=== PATIENT | male | born 1965 | race Caucasian/White ===

== ENCOUNTER → 2017-12-14 | Outpatient (CLI) | payer OTHER ==
[~2017-12-14] MED LIST: FUROSEMIDE 20 MG/2 ML ONE
== END ==
LOC: RAD 12:04
PROVIDERS: ATTEND Urology
DX: Q63.1 Lobulated, fused and horseshoe kidney (principal)
CPT/HCPCS: 78708; A9562; J1940

== ENCOUNTER 2017-12-23 05:42 | Observation (INO) | payer OTHER ==
[2017-12-21 08:56] LABS: ALANINE AMINOTRANSFERASE 42 U/L (12-78); ALBUMIN 4.1 g/dL (3.4-5.0); ANION GAP 10 mmol/L (5-15); CALCIUM 9.6 mg/dL (8.5-10.1); CHLORIDE 101 mmol/L (98-107); CREATININE 1.47 mg/dL (0.7-1.3)
[2017-12-21 08:58] LABS: ALKALINE PHOSPHATASE 104 U/L (45-117); BILIRUBIN,TOTAL 0.4 mg/dL (0.2-1.0); TOTAL PROTEIN 8.1 g/dL (6.4-8.2)
[~2017-12-23] VITALS: Ht 185.4 cm; Wt 117.1 kg
[~2017-12-23 05:42] MED LIST changes: +ASPI-621 PO; +ATOR10TA9 PO; +FENO160T PO; -FUROSEMIDE 20 MG/2 ML ONE; +LOSA1TAB22 PO; +METF500T4 PO; +MULT-516 PO
[2017-12-23] MEDS ORDERED: LACTATED RINGERS 1,000 ML IV SCH (06:23)
[2017-12-23 06:28] VITALS: BP 128/90
[2017-12-23] MEDS ORDERED: INSULIN REGULAR 100 UNITS/ML, 3ML VIAL SQ-INSULIN STA (07:00)
[2017-12-23] MEDS ORDERED: INSULIN SINGLE DOSE, ER SQ-INSULIN ONE ×2 (07:02→11:08)
[2017-12-23] MEDS ORDERED: ROCURONIUM 10 MG/ML,10ML ONE (07:13)
[2017-12-23] MEDS ORDERED: PROPOFOL 10 MG/ML, 20ML ONE (07:13)
[2017-12-23] MEDS ORDERED: LIDOCAINE-MPF 2% ,5ML ONE (07:13)
[2017-12-23] MEDS ORDERED: BUPIVACAINE/PF 0.25% ONE (07:17)
[2017-12-23] MEDS ORDERED: FLUORESCEIN SODIUM 500 MG/5 ML ONE (07:17)
[2017-12-23] MEDS ORDERED: EPINEPHRINE 1 MG/ML, 1ML ONE (07:17)
[2017-12-23] MEDS ORDERED: THROMBIN 5,000 UNIT VIAL TP ONE (07:17)
[2017-12-23 07:18] LABS: MICROSCOPIC NOT IND
[2017-12-23 07:30] LABS: CULTURE INDICATED? NO
[2017-12-23] MEDS ORDERED: CEFAZOLIN 1,000 MG ONE ×2 (07:40)
[2017-12-23] MEDS ORDERED: FENTANYL PF 100 MCG/2ML ONE ×2 (08:16→10:18)
[2017-12-23] MEDS ORDERED: HYDROmorphone 2 MG/ML, 1ML ONE ×2 (08:21→12:05)
[2017-12-23] MEDS ORDERED: DEXAMETHASONE 4 MG/ML, 1ML ONE ×2 (08:30)
[2017-12-23] MEDS ORDERED: BUPIVACAINE/PF-EPI 0.25% 1:200K IM ONE (08:41)
[2017-12-23] MEDS ORDERED: ONDANSETRON 2MG/ML, 2ML IVPush PRN (09:00)
[2017-12-23] MEDS ORDERED: MEPERIDINE/PF 25MG/0.5ML IVPush PRN (09:00)
[2017-12-23] MEDS ORDERED: HYDROcodone/APAP 7.5-325MG/15ML UDC PO PRN (09:00)
[2017-12-23] MEDS ORDERED: FENTANYL PF 100 MCG/2ML IV PRN (09:00)
[2017-12-23] MEDS ORDERED: OXYcodone 5 MG/5 ML ORAL.SOL UDC PO PRN (09:00)
[2017-12-23] MEDS ORDERED: ONDANSETRON 2MG/ML, 2ML ONE (09:32)
[2017-12-23] MEDS ORDERED: NEOSTIGMINE 1 MG/ML, 10ML ONE (10:27)
[2017-12-23] MEDS ORDERED: GLYCOPYRROLATE 0.2MG/1ML, 5ML ONE (10:27)
[2017-12-23] MEDS ORDERED: OXYcodone 5 MG/5 ML ORAL.SOL UDC ONE (11:07)
[2017-12-23] MEDS ORDERED: INSULIN REGULAR 100 UNITS/ML, 3ML VIAL SQ-INSULIN ONE (11:30)
[2017-12-23] MEDS: HYDROmorphone 1 MG/ML, 1ML IV PRN ×2 (12:07→12:35)
[2017-12-23] MEDS ORDERED: DIPHENHYDRAMINE 50 MG/ML, 1ML IVPush ONE (12:30)
[2017-12-23] MEDS ORDERED: DIPHENHYDRAMINE 50 MG/ML, 1ML ONE (12:32)
[2017-12-23 13:15] VITALS: BP 113/81
[2017-12-23] MEDS ORDERED: ACETAMINOPHEN 500 MG TABLET PO PRN (13:30)
[2017-12-23] MEDS ORDERED: D5%-0.45NACL+KCL 20MEQ 1,000 ML IV SCH (13:30)
[2017-12-23] MEDS ORDERED: ONDANSETRON 2MG/ML, 2ML IV PRN (14:00)
[2017-12-23] MEDS ORDERED: PLEASE ENTER ALLERGIES MC SCH ×2 (14:30→22:00)
[2017-12-23] MEDS: OXYcodone/APAP 10/325MG TABLET PO PRN ×3 (15:48→23:35)
[2017-12-23] MEDS: metFORMIN 500 MG TABLET PO SCH (16:59)
[2017-12-23] MEDS: DIPHENHYDRAMINE 25 MG CAPSULE PO PRN ×2 (16:59→23:03)
[2017-12-23] MEDS ORDERED: DIPHENHYDRAMINE 50 MG/ML, 1ML IVPush PRN (17:00)
[2017-12-23] MEDS: POTASSIUM CHLORIDE 20 MEQ in SODIUM CHLORIDE 0.45% 1,000 ML IV SCH (18:20)
[2017-12-23] MEDS: INSULIN REGULAR 100 UNITS/ML, 3ML VIAL SQ-INSULIN SCH ×2 (18:21→21:07)
[2017-12-23 19:46] VITALS: BP 102/64
[2017-12-23] MEDS ORDERED: ATORVASTATIN 10 MG TABLET PO SCH (21:00)
[2017-12-23] MEDS: HYDROmorphone 2 MG/ML, 1ML IV PRN (21:31)
[2017-12-24 00:09] VITALS: BP 130/82
[2017-12-24] MEDS: HYDROmorphone 2 MG/ML, 1ML IV PRN ×2 (02:30→05:26)
[2017-12-24] MEDS: POTASSIUM CHLORIDE 20 MEQ in SODIUM CHLORIDE 0.45% 1,000 ML IV SCH (02:57)
[2017-12-24] MEDS: OXYcodone/APAP 10/325MG TABLET PO PRN ×3 (03:32→11:37)
[2017-12-24 03:45] VITALS: BP 111/69
[2017-12-24 05:02] LABS: ANION GAP 9 mmol/L (5-15); CALCIUM 8.1 mg/dL (8.5-10.1); CHLORIDE 98 mmol/L (98-107)
[2017-12-24 05:03] LABS: CREATININE 1.26 mg/dL (0.7-1.3)
[2017-12-24] MEDS: DIPHENHYDRAMINE 25 MG CAPSULE PO PRN ×2 (05:15→11:37)
[2017-12-24 07:17] VITALS: BP 129/81
[2017-12-24] MEDS: INSULIN REGULAR 100 UNITS/ML, 3ML VIAL SQ-INSULIN SCH ×2 (07:36→11:48)
[2017-12-24] MEDS ORDERED: DOCUSATE 100 MG CAPSULE ONE (07:42)
[2017-12-24] MEDS: metFORMIN 500 MG TABLET PO SCH (07:51)
[2017-12-24] MEDS ORDERED: HYDROCHLOROTHIAZIDE 25 MG TABLET PO SCH (09:00)
[2017-12-24] MEDS ORDERED: DOCUSATE 100 MG CAPSULE PO SCH (09:00)
[2017-12-24] MEDS ORDERED: LOSARTAN 50MG TABLET PO SCH (09:00)
[2017-12-24] MEDS ORDERED: FENOFIBRATE 145 MG TABLET PO SCH (09:00)
[2017-12-24] MEDS ORDERED: MULTIVITAMIN 1 TABLET PO SCH (09:00)
[2017-12-24] MEDS ORDERED: FLU VACC QS2017-18 (36MOS+) UP/PF 0.5 ML IM-VACC ONE (09:30)
[2017-12-24] MEDS ORDERED: OXYC-307 PO (12:08)
== END 2017-12-24 12:30 | disposition home or self-care (01) ==
LOC: OUT 05:42 → 4NOR 13:10 → OUT 13:49 → DCLOUNGE 12-24 12:26
PROVIDERS: ADMIT Urology; ATTEND Urology
DX: N13.0 Hydronephrosis with ureteropelvic junction obstruction (principal); N13.5 Crossing vessel and stricture of ureter without hydronephrosis; N13.30 Unspecified hydronephrosis; Q63.1 Lobulated, fused and horseshoe kidney
CPT/HCPCS: 36415; 50544; 50953; 74420; 80048; 80053; 81003; 82962; 88305; 90471; 90686; 96372; 96374; 96376; C1729; C1760; C1769; C2617; G0378; J0171; J0690; J1100; J1170; J1200; J1815; J2405; J2704; J2710; J3010; J3480; J3490; J7120; Q0163

== ENCOUNTER → 2018-01-11 | Outpatient (CLI) | payer OTHER ==
[~2018-01-11] MED LIST changes: +OXYC-307 PO
== END | disposition home or self-care (01) ==
LOC: RAD 11:35
PROVIDERS: ATTEND Urology
DX: N20.2 Calculus of kidney with calculus of ureter (principal)
CPT/HCPCS: 74018

== ENCOUNTER 2021-04-19 19:37 | Emergency (ER) | payer OTHER ==
[~2021-04-19] VITALS: Ht 188 cm; Wt 105.0 kg
[~2021-04-19 19:37] MED LIST changes: -ASPI-621 PO; +ASPI81TA45 PO; +METF500T17 PO; -METF500T4 PO; -OXYC-307 PO; +OXYC-380 PO
[2021-04-19] MEDS ORDERED: ONDANSETRON 2MG/ML, 2ML ONE (19:52)
[2021-04-19] MEDS ORDERED: MORPHINE SULFATE 4 MG/ML, 1ML ONE (19:53)
[2021-04-19] MEDS ORDERED: HYDROmorphone 1 MG/ML, 1ML INJ ONE (19:58)
[2021-04-19] MEDS ORDERED: MORPHINE SULFATE 4 MG/ML, 1ML IVPush PRN (20:00)
[2021-04-19] MEDS ORDERED: PLEASE ENTER HEIGHT AND WEIGHT MC SCH (20:00)
[2021-04-19] MEDS ORDERED: ONDANSETRON 2MG/ML, 2ML IVPush ONE (20:00)
[2021-04-19] MEDS ORDERED: HYDROmorphone 1 MG/ML, 1ML INJ IV ONE (20:00)
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
--- NOTE | 2021-04-19 21:00 | NUR ---
REPORT TO RAGINI SHARPE.
[2021-04-19] MEDS ORDERED: DIAZEPAM 5 MG TABLET ONE (21:56)
[2021-04-19] MEDS ORDERED: KETOROLAC 30 MG/1 ML ONE (21:56)
[2021-04-19 21:58] VITALS: BP 128/90
[2021-04-19] MEDS ORDERED: KETOROLAC 30 MG/1 ML IVPush ONE (22:00)
[2021-04-19] MEDS ORDERED: DIAZEPAM 5 MG TABLET PO ONE (22:00)
[2021-04-19] MEDS ORDERED: NEOSPORIN OINT. PKT 1 PACKET ONE (22:07)
== END 2021-04-19 22:55 | disposition home or self-care (01) ==
LOC: ED 22:54
DX: S06.0X0A Concussion without loss of consciousness, initial encounter (principal); S16.1XXA Strain of muscle, fascia and tendon at neck level, initial encounter; S29.012A Strain of muscle and tendon of back wall of thorax, initial encounter; W18.30XA Fall on same level, unspecified, initial encounter; Y93.89 Activity, other specified; Y92.828 Other wilderness area as the place of occurrence of the external cause; Y99.8 Other external cause status
CPT/HCPCS: 70450; 72072; 72125; 96374; 96375; 99285; J1170; J1885; J2405